=== PATIENT | female | born 1935 | race Two or more races ===

== ENCOUNTER 2021-11-03 08:00 | Inpatient (IN) | payer OTHER ==
[~2021-11-03] VITALS: Ht 149.9 cm; Wt 59.4 kg
[2021-11-03] MEDS ORDERED: VERELAN180 MG PO (10:47)
[2021-11-03] MEDS ORDERED: DAILY VALUE1 EACH PO (10:48)
[2021-11-03] MEDS ORDERED: CALTRATE 600+D1 EAC1 PO (10:48)
[2021-11-09] MEDS ORDERED: PANTOPRAZOLE SO40 MG (15:24)
[2021-11-09] MEDS ORDERED: LEVOCETIRIZINE D5 MG (15:24)
[2021-11-09] MEDS ORDERED: MONTELUKAST SOD10 MG (15:24)
[2021-11-09] MEDS ORDERED: DULOXETINE HCL60 MG (15:24)
[2021-11-09] MEDS ORDERED: SYNTHROID100 MCG (15:24)
== END 2021-11-23 07:57 | disposition expired | DRG 329 ==
LOC: SURH 11-09 08:00 → SURG 11-09 10:36 → O/R 11-09 10:36 → SURH 11-09 18:35 → SURG 11-09 18:41 → SURH 11-09 20:45
PROVIDERS: ADMIT Colon & Rectal Surgery; ATTEND Colon & Rectal Surgery
PROC: 07BB4ZZ Excision of Mesenteric Lymphatic, Percutaneous Endoscopic Approach (ICD-10-PCS; 2021-11-09)
PROC: 0DTF4ZZ Resection of Right Large Intestine, Percutaneous Endoscopic Approach (ICD-10-PCS; principal; 2021-11-09 20:45)
PROC: 4A12X4Z Monitoring of Cardiac Electrical Activity, External Approach (ICD-10-PCS; 2021-11-13)
PROC: 02HV33Z Insertion of Infusion Device into Superior Vena Cava, Percutaneous Approach (ICD-10-PCS; 2021-11-15)
PROC: BW24YZZ Computerized Tomography (CT Scan) of Chest and Abdomen using Other Contrast (ICD-10-PCS; 2021-11-18)
PROC: 0BH17EZ Insertion of Endotracheal Airway into Trachea, Via Natural or Artificial Opening (ICD-10-PCS; 2021-11-23)
PROC: 5A1935Z Respiratory Ventilation, Less than 24 Consecutive Hours (ICD-10-PCS; 2021-11-23)
DX: C18.2 Malignant neoplasm of ascending colon (principal); J69.0 Pneumonitis due to inhalation of food and vomit; K92.1 Melena; N39.0 Urinary tract infection, site not specified; J44.1 Chronic obstructive pulmonary disease with (acute) exacerbation; D62 Acute posthemorrhagic anemia; R06.02 Shortness of breath; R09.02 Hypoxemia; D69.6 Thrombocytopenia, unspecified; Z85.038 Personal history of other malignant neoplasm of large intestine; I10 Essential (primary) hypertension; E03.8 Other specified hypothyroidism; B95.2 Enterococcus as the cause of diseases classified elsewhere; B96.89 Other specified bacterial agents as the cause of diseases classified elsewhere; F43.20 Adjustment disorder, unspecified